=== PATIENT | male | born 1960 | race Caucasian/White ===

== ENCOUNTER 2023-01-29 04:30 | Emergency (ER) | payer OTHER ==
[~2023-01-29] VITALS: Ht 177.8 cm; Wt 95.2 kg
[2023-01-29 05:00] VITALS: BP 150/86
[2023-01-29] MEDS ORDERED: AMLODIPINE-BEN1 EAC3 PO (05:14)
[2023-01-29] MEDS ORDERED: HYDCHL12.5 PO (05:16)
[2023-01-29 06:59] LABS: U Amphetamine Screen Not Detected; U Barbituate Screen Not Detected; U Benzodiazapine Screen Not Detected; U Buprenorphine Screen Not Detected; U Cannabinoids Screen Not Detected; U Cocaine Screen Not Detected; U Methadone Screen Not Detected; U Methamphetamine Screen Not Detected; U Opiates Screen Not Detected; U Oxycodone Screen Not Detected; U Phencyclidine Screen Not Detected; U Propoxyphene Screen Not Detected
[2023-01-29] MEDS ORDERED: IBUP800 PO (08:04)
[2023-01-29] MEDS ORDERED: HYDR1TAB94 PO ×2 (08:04→08:05)
== END 2023-01-29 08:18 | disposition home or self-care (01) ==
LOC: ER 04:30
PROVIDERS: Student in an Organized Health Care Education/Training Program
DX: S89.91XA Unspecified injury of right lower leg, initial encounter (principal); I10 Essential (primary) hypertension; Z91.048 Other nonmedicinal substance allergy status; Z79.899 Other long term (current) drug therapy; W22.8XXA Striking against or struck by other objects, initial encounter; Y92.89 Other specified places as the place of occurrence of the external cause; Y99.0 Civilian activity done for income or pay
CPT/HCPCS: 73562-RT; 76882; 96374; 99284-25; A9270; J1885